=== PATIENT | female | born 1950 ===

== ENCOUNTER 2024-07-23 14:24 | Inpatient (IN) ==
[2024-07-23] MEDS ORDERED: Albuterol 2.5mg/3 ml (0.083%) NEB.SOLN INH PRN (16:52)
[2024-07-23 17:43] LABS: Hemoglobin 11.2 g/dL (11.5-14.3)
[2024-07-23] MEDS: Pantoprazole 80 mg in NS BAG 80 MG/250 ML BAG IV SCH (17:54)
[2024-07-23] MEDS: cefTRIAXone 1 gm/50 mL D5W 1 GM/50 ML BAG IV SCH (17:58)
[2024-07-23] MEDS: Mometasone/Formoter 100/5 MDI INH SCH (20:40)
[2024-07-24 06:06] LABS: Hematocrit 31.8 % (35-45); Hemoglobin 10.4 g/dL (11.5-14.3); Mean Corpuscular Hemoglobin 29.6 pg (27-33); Mean Corpuscular Hgb Conc 32.7 g/dL (31-36); Mean Corpuscular Volume 90.7 fL (80-97); White Blood Count 14.2 10^3/uL (3.8-11.8)
[2024-07-24 06:20] LABS: Calcium 8.7 mg/dL (8.6-10.3); Creatinine, Serum 0.98 mg/dL (0.51-0.95); Magnesium 1.9 mg/dL (1.9-2.7); Potassium 4.6 mmol/L (3.5-5.0); eGFR CKD-EPI 60.9 (>60)
[2024-07-24] MEDS: SPIRIVA Respimat (tiotropium) 2.5 mcg/inh Inhaler INH SCH (07:10)
[2024-07-24 07:45] LABS: ABS Basophils 0.1 10^3/uL (0.0-0.1); ABS Monocytes 1.1 10^3/uL (0.0-0.9); ABS Nucleated RBC 0.01 10^3/ul; Lymphocyte % 13.8 %; Mean Platelet Volume 8.3 fL (7.5-11.2); Nucleated Red Blood Cells % 0.1 %/100WBC (0.0-0.8); Platelet Count 204 10^3/uL (150-450)
[2024-07-24] MEDS: methylPREDNISolone SOD SUCC 125 mg 2 ML VIAL IV ONE (11:14)
[2024-07-24] MEDS: Albuterol/Ipratropium NEB.SOL (2.5/0.5 MG) 3 ML NEB.SOLN INH ONE (11:25)
[2024-07-24] MEDS ORDERED: fentaNYL 100 mcg/2 ml 50 MCG/ML VIAL IV PRN (12:12)
[2024-07-24] MEDS ORDERED: Naloxone 0.4 mg VIAL 0.4 mg/ml 1 ml VIAL IV PRN (12:12)
[2024-07-24] MEDS ORDERED: Ondansetron 4 mg VIAL 2 MG/ML 2 ml VIAL IV PRN (12:12)
[2024-07-24] MEDS ORDERED: NS 0.45% 1000 ml BAG 1,000 ML IV SCH (13:00)
[2024-07-24] MEDS: Albuterol/Ipratropium NEB.SOL (2.5/0.5 MG) 3 ML NEB.SOLN INH SCH (14:19)
[2024-07-24] MEDS ORDERED: Phenylephrine 40 mcg/mL 10mL (400mcg) SYRINGE ONE (14:49)
[2024-07-24] MEDS ORDERED: Propofol 1,000 MG/100 ML BTL ONE (14:49)
[2024-07-24] MEDS: Acetaminophen IV 1 GM/100ML 1,000 MG/100 ML BAG IV ONE (16:10)
[2024-07-24] MEDS: Scopolamine 1 mg/72hr PATCH TRANSDERM ONE (16:11)
[2024-07-24] MEDS: Lactated Ringers 1000 ml BAG 1,000 ML IV SCH (16:11)
[2024-07-24] MEDS: Buffered Lidocaine 1% SYRIN 1 ml INTRADERM ONE (16:11)
[2024-07-24] MEDS: Pantoprazole VIAL 40 MG VIAL IV ONE (18:48)
[2024-07-24 21:39] LABS: Hematocrit 26.6 % (35-45); Hemoglobin 8.9 g/dL (11.5-14.3)
[2024-07-25 06:29] LABS: Hematocrit 28.4 % (35-45); Hemoglobin 9.4 g/dL (11.5-14.3); Mean Corpuscular Hemoglobin 29.6 pg (27-33); Mean Corpuscular Hgb Conc 33.2 g/dL (31-36); Mean Corpuscular Volume 89.3 fL (80-97); Mean Platelet Volume 8.3 fL (7.5-11.2); Platelet Count 217 10^3/uL (150-450); Red Blood Count 3.18 10^6/uL (3.63-4.92); Red Cell Distribution Width 15.9 % (12-17)
[2024-07-25 06:49] LABS: Albumin 3.3 g/dL (3.5-5.7); Albumin/Globulin Ratio 1.5 (1-3); Calcium 8.9 mg/dL (8.6-10.3); Creatinine, Serum 1.06 mg/dL (0.51-0.95); Globulin 2.2 g/dL (2-4); Magnesium 1.9 mg/dL (1.9-2.7); Potassium 4.2 mmol/L (3.5-5.0); Total Bilirubin 0.3 mg/dL (0.2-1.0); Total Protein 5.5 g/dL (6.4-8.9); eGFR CKD-EPI 55.5 (>60)
[2024-07-25 07:41] LABS: ABS Lymphocytes 0.9 10^3/uL (1.0-4.8); ABS Monocytes 0.7 10^3/uL (0.0-0.9); ABS Neutrophils 10.3 10^3/uL (1.5-7.6); Lymphocyte % 7.7 %
[2024-07-25] MEDS: methylPREDNISolone SOD SUCC 40 mg/ml 1 ml VIAL IV SCH (09:09)
[2024-07-25 13:40] VITALS: BP 115/67
[2024-07-25] MEDS: Albuterol/Ipratropium NEB.SOL (2.5/0.5 MG) 3 ML NEB.SOLN INH SCH (13:58)
[2024-07-25 14:27] LABS: Hematocrit 28.6 % (35-45); Hemoglobin 9.5 g/dL (11.5-14.3)
== END 2024-07-25 16:18 | disposition home or self-care (01) | DRG 241 ==
LOC: SUATTDRO 16:14 → MED 16:14
PROVIDERS: ADMIT Hospitalist; ATTEND Hospitalist
PROC: O.GIEGD (2024-07-24 15:05)